=== PATIENT | female | born 1990 | race Caucasian/White ===

== ENCOUNTER 2023-08-03 05:03 | Inpatient (IN) | payer MEDICAID ==
[~2023-08-03 05:03] MED LIST: BRETHINE 1 MG/ML SQ PRN; Dulcolax 10 MG SUPP PR PRN; Ephedrine Sulfate 50 MG/ML IV PRN; TYLENOL EXTRA STRENGTH 500 MG PO PRN; XYLOCAINE 1% HCL 20 ML MDV IJ PRN; Zofran 4 MG/2 ML VIAL IV PRN
[2023-08-03] MEDS: PITOCIN 30 UNITS/ LR 500 ML 30 UNITS/500 ML PLAST..BAG IV SCH (05:53)
[2023-08-03 05:55] LABS: Absolute Neutrophil Ct (ANC) 7.02 x10^3/uL (1.4-6.9); BASOPHIL % 0.3 % (0.0-0.4); Basophil (Absolute #) 0.03 x10^3/uL (0-0.4); Eosinophil % 1.2 % (0.00-5.0); Eosinophil (Absolute #) 0.12 x10^3/uL (0-0.5); Hematocrit 37.7 % (35-47); Hemoglobin 12.9 g/dL (12.0-16.0); IMMATURE GRAN # 0.07 x10^3u/L (0.00-0.03); IMMATURE GRAN % 0.7 % (0.00-0.4); Lymphocyte (Absolute #) 1.56 x10^3/uL (1.0-4.6); Lymphocytes % 16.1 % (24.0-44.0); Mean Cell Volume 98.4 fL (78-100); Mean Corpuscular Hemoglobin 33.7 pg (26-32); Mean Corpuscular Hgb Concent. 34.2 g/dL (32-36); Mean Platelet Volume 9.4 fL (7.5-11.0); Monocyte (Absolute #) 0.91 x10^3/uL (0.0-1.3); Monocytes % 9.4 % (0.0-12.0); Neutrophil % 72.3 % (36.0-66.0); Platelet Count 211 x10^3/uL (150-450); Red Blood Count 3.83 x10^6/uL (4.1-5.4); Red Cell Distribution Width 12.7 % (11.5-14.0); White Blood Count 9.7 x10^3/uL (4.0-10.5)
[2023-08-03 06:09] LABS: Amphetamine,Urine NEGATIVE (NEGATIVE); Barbiturate,Urine NEGATIVE (NEGATIVE); Benzodiazepine,Urine NEGATIVE (NEGATIVE); Cocaine,Urine NEGATIVE (NEGATIVE); Methadone,Urine NEGATIVE (NEGATIVE); Opiate,Urine NEGATIVE (NEGATIVE); PCP,Urine NEGATIVE (NEGATIVE); THC,Urine NEGATIVE (NEGATIVE)
[2023-08-03 06:38] LABS: ABO TYPING A; Antibody Screen NEGATIVE (NEGATIVE); RH TYPING POSITIVE
[2023-08-03] MEDS: Lactated Ringers 1,000 ML IV SCH (06:42)
[2023-08-03] MEDS: FENTANYL 2 MCG-BUPIV 0.125%-NS 250 ML Epidur 250 ML EPIDURAL SCH (09:53)
[2023-08-03] MEDS ORDERED: Mylicon 80MG PO PRN (13:00)
[2023-08-03] MEDS ORDERED: TYLENOL EXTRA STRENGTH 500 MG PO PRN (13:00)
[2023-08-03] MEDS ORDERED: LANSINOH 40 GM TOP PRN (13:00)
[2023-08-03] MEDS ORDERED: CORTISONE 1% CREAM TP PRN (13:00)
[2023-08-03] MEDS ORDERED: Sodium Chloride 0.9% 1000 ML 1,000 ML ONE (14:36)
[2023-08-03 14:51] LABS: Absolute Neutrophil Ct (ANC) 10.66 x10^3/uL (1.4-6.9); BASOPHIL % 0.1 % (0.0-0.4); Basophil (Absolute #) 0.02 x10^3/uL (0-0.4); Eosinophil % 0.4 % (0.00-5.0); Eosinophil (Absolute #) 0.05 x10^3/uL (0-0.5); Hematocrit 33.2 % (35-47); Hemoglobin 10.8 g/dL (12.0-16.0); IMMATURE GRAN # 0.05 x10^3u/L (0.00-0.03); IMMATURE GRAN % 0.4 % (0.00-0.4); Lymphocyte (Absolute #) 1.62 x10^3/uL (1.0-4.6); Lymphocytes % 11.8 % (24.0-44.0); Mean Cell Volume 100.3 fL (78-100); Mean Corpuscular Hemoglobin 32.6 pg (26-32); Mean Corpuscular Hgb Concent. 32.5 g/dL (32-36); Mean Platelet Volume 9.4 fL (7.5-11.0); Monocyte (Absolute #) 1.33 x10^3/uL (0.0-1.3); Monocytes % 9.7 % (0.0-12.0); Neutrophil % 77.6 % (36.0-66.0); Platelet Count 233 x10^3/uL (150-450); Red Blood Count 3.31 x10^6/uL (4.1-5.4); Red Cell Distribution Width 12.7 % (11.5-14.0); White Blood Count 13.7 x10^3/uL (4.0-10.5)
[2023-08-03 14:52] LABS: VBG BASE EXCESS -2.3 (-2.0-2.0); VBG CARBOXYHEMOGLOBIN 2.1 % T HGB (0.0-6.9); VBG HCO3- 21.1 meq/L (22-28); VBG HEMOGLOBIN 11.9; VBG O2 SATURATION 68.8 (95-100); VBG POTASSIUM 3.9 (3.5-5.1); VBG pH 7.44 (7.32-7.42)
[2023-08-03 14:59] LABS: ANION GAP 11.2 MEQ/L (5-15); Calcium 8.9 mg/dL (8.4-10.2); Creatinine 1 0.57 mg/dL (0.52-1.04); Potassium 3.6 mmol/L (3.5-5.1); Total Protein 5.7 g/dL (6.3-8.2)
[2023-08-03] MEDS ORDERED: AMMONIA AROMATIC IH ONE (15:32)
[2023-08-03 18:02] LABS: Hemoglobin 9.3 g/dL (12.0-16.0); Mean Cell Volume 100.4 fL (78-100); Mean Corpuscular Hemoglobin 33.3 pg (26-32); Mean Corpuscular Hgb Concent. 33.2 g/dL (32-36); Mean Platelet Volume 9.2 fL (7.5-11.0); Platelet Count 162 x10^3/uL (150-450); Red Blood Count 2.79 x10^6/uL (4.1-5.4); Red Cell Distribution Width 12.7 % (11.5-14.0); White Blood Count 15.9 x10^3/uL (4.0-10.5)
[2023-08-03] MEDS: Dermoplast Spray TP PRN (19:35)
[2023-08-03] MEDS: TUCKS TP PRN (19:37)
[2023-08-03] MEDS: Docusate Sodium 100 MG PO SCH (21:06)
[2023-08-03] MEDS: MOTRIN 400 MG PO PRN (21:06)
[2023-08-03] MEDS: Lactated Ringers 1,000 ML IV ONE (21:43)
[2023-08-03] MEDS: NORCO 5/325 MG PO PRN (23:43)
[2023-08-04 04:35] LABS: Absolute Neutrophil Ct (ANC) 7.58 x10^3/uL (1.4-6.9); BASOPHIL % 0.3 % (0.0-0.4); Basophil (Absolute #) 0.03 x10^3/uL (0-0.4); Eosinophil (Absolute #) 0.11 x10^3/uL (0-0.5); Hematocrit 25.3 % (35-47); Hemoglobin 8.4 g/dL (12.0-16.0); IMMATURE GRAN # 0.06 x10^3u/L (0.00-0.03); IMMATURE GRAN % 0.6 % (0.00-0.4); Lymphocytes % 18.6 % (24.0-44.0); Mean Cell Volume 100.8 fL (78-100); Mean Corpuscular Hemoglobin 33.5 pg (26-32); Mean Corpuscular Hgb Concent. 33.2 g/dL (32-36); Mean Platelet Volume 8.8 fL (7.5-11.0); Monocyte (Absolute #) 0.96 x10^3/uL (0.0-1.3); Monocytes % 8.9 % (0.0-12.0); Neutrophil % 70.6 % (36.0-66.0); Platelet Count 152 x10^3/uL (150-450); Red Blood Count 2.51 x10^6/uL (4.1-5.4); Red Cell Distribution Width 12.8 % (11.5-14.0); White Blood Count 10.7 x10^3/uL (4.0-10.5)
[2023-08-04] MEDS ORDERED: NORCO 5/325 MG PO PRN (07:27)
--- NOTE | 2023-08-04 08:35 | XRAY ---
Indication: Status post section. Missing lap post count. Comparison: None KUB demonstrates nonspecific nonobstructed bowel gas pattern with mild diffuse colonic fecal debris. Visualized abdomen/pelvis negative for radiopaque foreign body. Prominent uterus consistent with recent . Osseous structures unremarkable.
[2023-08-04] MEDS: FERREX 150 PO SCH (09:34)
[2023-08-04] MEDS: M-M-R II Vaccine With Diluent SQ ONE (19:57)
[2023-08-04] MEDS: Adacel Vial IM ONE (19:57)
[2023-08-04 20:27] VITALS: RESP 18
[2023-08-05 05:47] LABS: Hematocrit 26.5 % (35-47); Hemoglobin 8.5 g/dL (12.0-16.0); Mean Cell Volume 101.9 fL (78-100); Mean Corpuscular Hemoglobin 32.7 pg (26-32); Mean Corpuscular Hgb Concent. 32.1 g/dL (32-36); Mean Platelet Volume 9.5 fL (7.5-11.0); Platelet Count 186 x10^3/uL (150-450); White Blood Count 10.3 x10^3/uL (4.0-10.5)
[2023-08-05 08:32] VITALS: BP 101/51; PULSE 91; TEMP 97.9; O2SAT 97
--- NOTE | 2023-08-05 10:52 | PCM.DS ---
Discharge Summary Date of Admission: 08/03/23 08:50 Admitting Physician: JAQUAN BAY Consults: Consults on Case 08/03/23 05:00 Notify Anesthesia Provider PRN 08/03/23 16:41 Navigation ONCE Primary Care Provider: JAQUAN BAY Allergies Allergies No Known Drug Allergies Allergy (Unverified 08/03/23 06:01) Hospital Summary - Hospital Course Hospital Course: patient had uncomplicated vaginal delivery with mild hemorrhage, had vasovagal syncope episode after delivery. improved with hydration, blood count down to 8.4, it was 8.5 today but received a large amount of IV fluids after syn cope. she is doing great, no dizziness or lightheadedness, mild lochia and pain controlled with ibuprofen. - Vitals & Intake/Output Vital Signs: Vital Signs Temperature 97.9 F 08/05/23 08:00 Pulse Rate 91 H 08/05/23 08:00 Respiratory Rate 18 08/05/23 08:00 Blood Pressure 101/51 08/05/23 08:00 O2 Sat by Pulse Oximetry 97 08/05/23 08:00 Intake & Output: Intake & Output 08/02/23 08/03/23 08/04/23 08/05/23 11:59 11:59 11:59 11:59 Intake Total 500 980 Output Total 2450 800 Balance -1950 180 Weight 88.451 kg - Lab Result Diagrams: 08/05/23 05:28 08/03/23 14:48 Lab Results-Last 24 Hrs: Lab Results-Last 24 Hours 08/05/23 Range/Units 05:28 WBC 10.3 (4.0-10.5) x10^3/uL RBC 2.60 L (4.1-5.4) x10^6/uL Hgb 8.5 L (12.0-16.0) g/dL Hct 26.5 L (35-47) % MCV 101.9 H (78-100) fL MCH 32.7 H (26-32) pg MCHC 32.1 (32-36) g/dL RDW 13.0 (11.5-14.0) % Plt Count 186 (150-450) x10^3/uL MPV 9.5 (7.5-11.0) fL - Radiology Exams Ordered Rad Exams-Entire Visit: Radiology Procedures Category Date Time Status KUB Stat Exams 08/03/23 20:37 Completed - Procedures and Test Procedures and Tests throughout Hospitalization: Therapy Orders & Screens 08/03/23 15:01 EKG ROUTINE Comment: Discharge Exam General Appearance: no apparent distress Neurologic Exam: alert, oriented x 3 Respiratory Exam: normal breath sounds, lungs clear, No respiratory distress Cardiovascular Exam: regular rate/rhythm, normal heart sounds Gastrointestinal/Abdomen Exam: soft, normal bowel sounds Extremity Exam: normal inspection, normal range of motion Skin Exam: normal color, warm, dry Final Diagnosis/Problem List - Final Discharge Diagnosis/Problem (1) Vaginal delivery Current Visit: Yes Status: Acute Code(s): O80 - ENCOUNTER FOR FULL-TERM UNCOMPLICATED DELIVERY (2) Third degree perineal laceration during delivery Current Visit: Yes Status: Acute Code(s): O70.20 - THIRD DEGREE PERINEAL LACERATION DURING DELIVERY, UNSP (3) hemorrhage Current Visit: Yes Status: Acute Code(s): O72.1 - OTHER IMMEDIATE HEMORRHAGE - Discharge Disposition: Home, Self-Care Condition: Stable Prescriptions: New Docusate Sodium 100 mg [Docusate Sodium 100 MG] 100 mg PO DAILY #30 cap Iron Polysaccharides Complex [Ferrex 150] 150 mg PO DAILY #30 cap Continue Calcium Carbonate [Tums] 200 mg PO Q12H PRN PRN PRN Reason: Indigestion Discontinued Pnv No.95/Ferrous Fum/Folic AC [ Vitamins Tablet] 1 tab PO DAILY Additional Instructions: take iron over the counter once daily and colace 100mg over the counter once daily as directed. return for any heavy bleeding, fever or severe pain. Follow up with: JAQUAN BAY MD [Primary Care Provider] - 6 weeks
== END 2023-08-05 12:20 | disposition home or self-care (01) | DRG 768 ==
LOC: OB 05:03 → OBSVTOIN 08:50 → OB 08:50
PROVIDERS: ADMIT Family Medicine; ATTEND Family Medicine
PROC: 10E0XZZ Delivery of Products of Conception, External Approach (ICD-10-PCS; principal; 2023-08-03)
PROC: 0DQR0ZZ Repair Anal Sphincter, Open Approach (ICD-10-PCS; 2023-08-03)
DX: O70.20 Third degree perineal laceration during delivery, unspecified (principal); Z37.0 Single live birth; O72.1 Other immediate postpartum hemorrhage; Z3A.37 37 weeks gestation of pregnancy; R55 Syncope and collapse; Z20.828 Contact with and (suspected) exposure to other viral communicable diseases
CPT/HCPCS: 36415; 74018; 80053; 80307; 81003; 82805; 82947; 84550; 85025; 85027; 86762; 86850; 86900; 86901; 93005; J2590; A9270-GY